=== PATIENT | male | born 1985 | race Caucasian/White ===

== ENCOUNTER 2019-05-03 15:01 | Emergency (ER) | payer OTHER, MEDICAID, SELFPAY ==
[2019-05-03 15:12] VITALS: BP 126/83; PULSE 92; RESP 20; TEMP 36.6; O2SAT 99; BMI 32.1
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
--- NOTE | 2019-05-07 12:13 | PC.NURSE ---
Pt called stating he did not get abx prescription filled, lost script and would like me to call it in. [phone] Encouraged pt to follow up as needed and indicated and return for any needs or concerns.
== END 2019-05-03 16:28 | disposition home or self-care (01) ==
PROVIDERS: Emergency Provider Emergency Medicine
DX: S20.212A Contusion of left front wall of thorax, initial encounter (principal); V49.40XA Driver injured in collision with unspecified motor vehicles in traffic accident, initial encounter
CPT/HCPCS: 71046; 71100; 72170; 73610; 99282; 99284

== ENCOUNTER 2020-02-14 23:25 | Emergency (ER) | payer OTHER, MEDICAID, SELFPAY ==
[2020-02-14 23:42] VITALS: BP 146/88; PULSE 104; RESP 16; TEMP 36.7; O2SAT 98; BMI 33.3
--- NOTE | 2020-02-15 00:26 | ED_ITS ---
HPI - Extremity Problem General Chief complaint: Extremity Problem,Nontraumatic Stated complaint: states right leg cellulitis Time Seen by Provider: 02/15/20 00:03 Source: patient Mode of arrival: Ambulatory Limitations: no limitations History of Present Illness HPI Narrative: 35-year-old gentleman with chronic low back pain on a pain contract and on 10 mg of oxycodone b.i.d. presents with approximately 2 weeks o f increasing right lower extremity redness and tenderness. Approximately 4 days into noticing that the leg was hurting more he took a total of 4 doses of Keflex and noticed significant improvement. Within a week symptoms had returned and he now has increasing pain swelling and redness in the right lower extremity. Has some minor chronic lower extremity edema but no other significant risk factors for recurrent cellulitis Related Data Previous Rx's Medication Instructions Recorded sulfamethoxazole-trimethoprim 1 tab PO BID #14 tab 05/03/19 [Bactrim DS] sulfamethoxazole-trimethoprim 1 tab PO BID #20 tab 02/15/20 Allergies Allergy/AdvReac Type Severity Reaction Status Date / Time No Known Drug Allergies Allergy Verified 05/03/19 15:18 Review of Systems Review of Systems Narrative: Pertinent positive and negative findings as per HPI Remainder of review of systems is otherwise unremarkable for Constitutional: Fevers, chills, weakness ENT: No sore throat, neck pain, ear pain CV: Chest pain, palpitations, dyspnea on exertion Respiratory: Cough, wheeze, dyspnea GI: Nausea, vomiting, diarrhea, change in bowel habits, black or bloody stools : Dysuria, hematuria, flank pain MS: Muscle weakness, numbness, joint swelling or warmth Neuro: Syncope, dizziness, tingling Patient History Medical History Chronic back pain (Acute) Pain management contract agreement (Acute) Social History Smoking Status: Former smoker Smoking Status: Former smoker alcohol intake frequency: holidays/special occasions only Substance Use Type: does not use Exam Narrative Exam Narrative: General: Alert appropriate in no acute distress Respiratory: Able to speak in full sentences, no obvious respiratory distress Skin: No obvious rashes, warm and dry Neurologic: Grossly intact no obvious asymmetries or abnormalities Psych, appropriate insight and affect, cooperative Extremities: 1+ lower extremity edema on the left with early venous stasis changes developing. 2+ on the right with erythema from the ankle to approximately 8 cm proximal. No obvious source or site of skin breakdown, calf is nontender and does not suggest DVT Initial Vital Signs Initial Vital Signs: Vital Signs Temperature 98.1 F 02/14/20 23:42 Pulse Rate 104 H 02/14/20 23:42 Respiratory Rate 16 02/14/20 23:42 Blood Pressure 146/88 H 02/14/20 23:42 Pulse Oximetry 98 02/14/20 23:42 Course Orders Ordered: Discontinued Medications Trimethoprim/Sulfamethoxazole (Bactrim Ds) 1 tab PO NOW ONE Stop: 02/15/20 00:37 Last Admin: 02/15/20 00:57 Dose: 1 tab Documented by: TERESA Vital Signs Vital signs: Vital Signs - 8 hr 02/14/20 23:42 02/15/20 00:45 Temperature 98.1 F Pulse Rate 104 H 101 H Respiratory Rate 16 18 Blood Pressure 146/88 H Blood Pressure [Left Arm] 146/88 H Pulse Oximetry 98 100 MDM - Extremity (Nontraumatic) MDM Narrative Medical decision making narrative: 35-year-old gentleman with right lower extremity cellulitis partially treated with antibiotics borrowed from a friend. Will complete a week of Septra to fully treated. No signs of sepsis no signs of DVT. Prescription is written encouraged follow-up with his primary care physician. We discussed pain medication, he currently is on 10 mg of oxycodone b.i.d. through his primary care physician for chronic back pain and uses Aleve at least twice a day. Discussed possibility of adding Tylenol into that daily pain cocktail should he desire any additional pain relief. Safe for home discharge Discharge Plan Departure Patient Disposition: Home Clinical Impression: Cellulitis Qualifiers: Site of cellulitis: extremity Site of cellulitis of extremity: lower extremity Laterality: right Qualified Code(s): L03.115 - Cellulitis of right lower limb Discharge Date/Time: 02/15/20 01:04 Instructions: DI for Cellulitis -- Adult Activity Restrictions/Additional Instructions: Thank you for coming in today You definitely do have a cellulitis developing in the right lower leg. I suspect that the moderate amount of edema that you have is part of the reason that you developed the cellulitis. You partially treated it with a single day of antibiotics but you really do need to complete an entire course to make sure it does not recur. I have given you 10 days of Septra/Bactrim. Please complete all 10 days If your developing fevers, chills, myalgias, a the cellulitis is worsening or you have new or different symptoms please feel free to return to the emergency department Good luck with your move and your new blended family Prescriptions: New sulfamethoxazole-trimethoprim 800-160 mg tablet 1 tab PO BID Qty: 20 RF: 0 No Action sulfamethoxazole-trimethoprim [Bactrim DS] 800-160 mg tablet 1 tab PO BID Qty: 14 RF: 0
[2020-02-15 00:45] VITALS: BP 146/88; PULSE 101; RESP 18; O2SAT 100
[2020-02-15] MEDS: TRIMETH/SULFA 160/800 (DS) TABLET 1 TAB PO (00:57)
== END 2020-02-15 01:04 | disposition home or self-care (01) ==
PROVIDERS: Emergency Provider Emergency Medicine
DX: L03.115 Cellulitis of right lower limb (principal)
CPT/HCPCS: 99283

== ENCOUNTER 2020-03-02 21:55 | Emergency (ER) | payer OTHER, MEDICAID, SELFPAY ==
--- NOTE | 2020-03-02 22:03 | ED.EXTPRO ---
HPI - Extremity Problem General Chief complaint: Skin/Abscess/Foreign Body Stated complaint: cellulitis right leg getting worse Time Seen by Provider: 03/02/20 21:58 Source: patient Mode of arrival: Ambulatory Limitations: no limitations History of Present Illness HPI Narrative: 35M smoker presents with a chief complaint of a recurrence of cellulitis of his lower legs. He denies fever, chills, N/V. He was recently seen and treated for cellulitis and started feeling better so he stopped taking his antibiotics. Soon thereafter the redness, warmth, and pain returned. He is otherwise well and free of complaint MD Complaint: extremity pain and extremity swelling Onset (ago): day(s) Pain Consistency: constant Location: left and right Quality: burning and aching Radiation: none Relieving factors: movement Related Data Previous Rx's Medication Instructions Recorded sulfamethoxazole-trimethoprim 1 tab PO BID #14 tab 05/03/19 [Bactrim DS] sulfamethoxazole-trimethoprim 1 tab PO BID #20 tab 02/15/20 doxycycline hyclate 100 mg PO BID #20 tab 03/02/20 Allergies Allergy/AdvReac Type Severity Reaction Status Date / Time No Known Drug Allergies Allergy Verified 03/02/20 22:16 Review of Systems Constitutional Constitutional: Denies chills, Denies fatigue, Denies fever(s), Denies frequent falls, Denies lethargy and Denies weakness Eyes Eyes: Denies change in vision, Denies eye discharge, Denies irritation and Denies loss of vision ENT Ears, Nose, Mouth, and Throat: Denies change in voice, Denies dizziness, Denies neck pain, Denies sore throat and Denies throat swelling Cardiovascular Cardiovascular: Denies chest pain, Denies irregular heart rhythm, Denies lightheadedness, Denies palpitations, Denies dyspnea, Denies dyspnea on exertion and Denies orthopnea Respiratory Respiratory: Denies cough, Denies dyspnea, Denies dyspnea on exertion and Denies wheezing Gastrointestinal Gastrointestinal: Denies abdominal pain, Denies change in bowel habits, Denies diarrhea, Denies nausea and Denies vomiting Musculoskeletal Musculoskeletal: Denies neck pain and Denies numbness Integumentary/Breasts Skin/Breast: Denies pruritus, Reports erythema, Denies rash, Reports skin pain, Reports skin swelling and Denies wounds Neurologic Neurologic: Denies behavioral changes, Denies confusion, Denies dizziness, Denies frequent falls, Denies loss of vision, Denies numbness and Denies weakness Psychiatric Psychiatric: Denies anxiety, Denies behavioral changes, Denies confusion, Denies depression, Denies homicidal ideation and Denies suicidal ideation Endocrine Endocrine: Denies fatigue, Denies flushing and Denies palpitations Hematologic/Lymphatic Hematologic/Lymphatic: Denies easy bruising Allergic/Immunologic Allergic/Immunologic: Denies urticaria, Denies throat swelling and Denies wheezing Patient History Medical History Chronic back pain (Acute) Pain management contract agreement (Acute) Social History Smoking Status: Former smoker Smoking Status: Former smoker alcohol intake frequency: holidays/special occasions only Substance Use Type: does not use Exam Narrative Exam Narrative: GEN: AOx3 and in mild distress EYES: Pupils are equal, round, and reactive to light and accommodation. Extraoccular muscles are intact bilaterally. There is no subconjunctival hemorrhage or exudate. CHEST: Lungs are clear to auscultation bilaterally and free of wheezes, rales, or rhonchi. Heart rate is regular rhythm, there are no murmurs, clicks, rubs, or gallops. There is no chest wall tenderness. ABD: Abdomen is soft and nontender. There is no guarding or rebound. Bowel sounds are normal in all 4 quadrants. There is no mass or organomegaly. EXT: Full painless ROM of all extremities with no loss of sensation or strength. SKIN: B/L LE erythema and warmth of lower portion of legs. No fluctuance, induration, or drainage. Initial Vital Signs Initial Vital Signs: Vital Signs Temperature 99.3 F 03/02/20 22:08 Pulse Rate 105 H 03/02/20 22:08 Respiratory Rate 18 03/02/20 22:08 Blood Pressure 136/75 03/02/20 22:08 Pulse Oximetry 96 03/02/20 22:08 Course Orders Ordered: Discontinued Medications Doxycycline Hyclate (Vibramycin) 100 mg PO NOW ONE Stop: 03/02/20 22:05 Last Admin: 03/02/20 22:13 Dose: 100 mg Documented by: RICHA MDM - Extremity (Nontraumatic) MDM Narrative Medical decision making narrative: cellulitis returns after stopping ABX. Patient without systemic findings, no signs of sepsis. Return precautions given. Questions answered to his apparent satisfaction. Discharge Plan Departure Patient Disposition: Home Clinical Impression: Cellulitis Qualifiers: Site of cellulitis: extremity Site of cellulitis of extremity: lower extremity Laterality: unspecified laterality Qualified Code(s): L03.119 - Cellulitis of unspecified part of limb Discharge Date/Time: 03/02/20 22:40 Activity Restrictions/Additional Instructions: *You have been diagnosed with [ Bilateral lower extremity cellulitis ] *What to do: *Take medications as directed *Follow up with your primary care provider in 2-3 days, call for an appointment. Let them know you were seen in the Emergency Department and that we ask that you be seen in follow up *Return to ER if you should have any new, worsening or concerning symptoms Prescriptions: New doxycycline hyclate 100 mg tablet 100 mg PO BID Qty: 20 RF: 0 No Action sulfamethoxazole-trimethoprim [Bactrim DS] 800-160 mg tablet 1 tab PO BID Qty: 14 RF: 0 sulfamethoxazole-trimethoprim 800-160 mg tablet 1 tab PO BID Qty: 20 RF: 0
[2020-03-02 22:08] VITALS: BP 136/75; PULSE 105; RESP 18; TEMP 37.4; O2SAT 96; BMI 34.7
[2020-03-02] MEDS: DOXYCYCLINE HYCLATE 100 MG TABLET PO (22:13)
== END 2020-03-02 22:40 | disposition home or self-care (01) ==
PROVIDERS: Emergency Provider Emergency Medicine
DX: L03.116 Cellulitis of left lower limb (principal); L03.115 Cellulitis of right lower limb
CPT/HCPCS: 99282; 99283

== ENCOUNTER 2022-05-16 13:46 | Emergency (ER) | payer OTHER, MEDICAID, SELFPAY ==
[2022-05-16 14:15] VITALS: BP 170/83; PULSE 99; RESP 16; TEMP 36.9; O2SAT 97; BMI 36.3
== END 2022-05-16 17:53 | disposition left against medical advice (07) ==
PROVIDERS: Emergency Provider Emergency Medicine
CPT/HCPCS: 99281

== ENCOUNTER 2022-06-16 22:51 | Emergency (ER) | payer OTHER, MEDICAID, SELFPAY ==
[2022-06-16 23:05] VITALS: BP 139/78; PULSE 112; RESP 20; TEMP 36.5; O2SAT 100; BMI 35.3
--- NOTE | 2022-06-16 23:15 | ED.GENADULT ---
HPI - General Adult General Chief complaint: Extremity Injury, Lower Stated complaint: right leg cellulitis/injury x1 da Time Seen by Provider: 06/16/22 23:06 Source: patient Mode of arrival: Ambulatory History of Present Illness HPI narrative: 37-year-old male who is here for evaluation of several days of worsening redness to his right lower extremity. He states that a couple days ago there was a small wound that developed on the front of his right wheatley. Redness has developed since then. He has had skin infections in the past. He states that overall he feels okay. No fevers. Has not tried anything for his read leg prior to arrival. Related Data Previous Rx's Medication Instructions Recorded sulfamethoxazole 800 1 tab PO BID #14 tabs 05/03/19 mg-trimethoprim 160 mg tablet (Bactrim DS) sulfamethoxazole 800 1 tab PO BID #20 tabs 02/15/20 mg-trimethoprim 160 mg tablet doxycycline hyclate 100 mg tablet 100 mg PO BID #20 tabs 03/02/20 doxycycline hyclate 100 mg tablet 100 mg PO BID 7 days #14 tabs 06/16/22 Allergies Allergy/AdvReac Type Severity Reaction Status Date / Time No Known Drug Allergies Allergy Verified 05/16/22 14:15 Review of Systems Constitutional Constitutional: Reports system reviewed and no additional complaints, except as documented Musculoskeletal Musculoskeletal: Reports system reviewed and no additional complaints, except as documented Integumentary/Breasts Skin/Breast: Reports system reviewed and no additional complaints, except as documented Neurologic Neurologic: Reports system reviewed and no additional complaints, except as documented Hematologic/Lymphatic On Anticoagulants: No Patient History Medical History Chronic back pain Pain management contract agreement Social History Smoking Status: Current some day smoker Smoking Status: Current some day smoker alcohol intake frequency: holidays/special occasions only Substance Use Type: marijuana Exam Initial Vital Signs Initial Vital Signs: Vital Signs Temperature 97.7 F 06/16/22 23:05 Pulse Rate 112 H 06/16/22 23:05 Respiratory Rate 20 06/16/22 23:05 Blood Pressure 139/78 06/16/22 23:05 Pulse Oximetry 100 06/16/22 23:05 Oxygen Delivery Method 06/16/22 23:05 Const General: cooperative and comfortable [facility] Head: normal to inspection and normocephalic Resp Effort & Inspection: normal respiratory effort Cardio Pulses: dorsalis pedis present on the right Skin Other: Patient has a large area of erythema that encompasses circumferentially his right lower extremity from his knee down to his ankle. There is a 1 cm x 1 cm ulceration on the anterior aspect of the right wheatley in the proximal 1/3. There is a smaller ulceration on the lateral aspect of the distal 1/3. Neuro Sensory Exam: no sensory deficits noted Extrem Other: Bilateral lower extremity swelling. Has full range of motion of his right knee and his right ankle. Course Orders Ordered: Discontinued Medications Doxycycline Hyclate (Doxycycline Hyclate 100 Mg Tablet) 100 mg PO NOW ONE Stop: 06/16/22 23:16 Last Admin: 06/16/22 23:21 Dose: 100 mg Documented By: MATTIE Vital Signs Vital signs: Vital Signs - 8 hr 06/16/22 23:05 Temperature 97.7 F Pulse Rate 112 H Respiratory Rate 20 Blood Pressure 139/78 Pulse Oximetry 100 Oxygen Delivery Method Room Air Medical Decision Making MDM Narrative Medical decision making narrative: Patient is afebrile but is tachycardic. He did admit to smoking marijuana prior to coming here to the emergency department. He has physical exam that is consistent with cellulitis of his right lower extremity. There is no findings consistent with abscess. He is nontoxic appearing. The extent of his cellulitis is borderline as to whether not he would need admitted to the hospital for IV antibiotics. He stated that he can not be admitted because he is a single parent. He would like to try outpatient antibiotics. He was given a dose of doxycycline here in the ER and a prescription was sent to the pharmacy of his choice. He was informed that he needs to keep a close eye on the redness and if it worsens that he does need to return most likely for admission for IV antibiotics. Discharge Plan Departure Patient Disposition: Home Clinical Impression: Cellulitis of lower extremity Instructions: DI for Cellulitis -- Adult Activity Restrictions/Additional Instructions: You absolutely have an infection in your right leg. Like we discussed you are on the border of potentially needing admitted to the hospital. We will attempt oral antibiotics at home. A prescription was sent to the pharmacy of your choice. You were given a 1st dose here in the ER. Please pick the antibiotic up tomorrow and start taking it as directed. Return to the emergency department for any new or worsening symptoms. Prescriptions: New doxycycline hyclate 100 mg tablet 100 mg PO BID 7 Days Qty: 14 0RF No Action sulfamethoxazole-trimethoprim [Bactrim DS] 800-160 mg tablet 1 tab PO BID Qty: 14 0RF sulfamethoxazole-trimethoprim 800-160 mg tablet 1 tab PO BID Qty: 20 0RF doxycycline hyclate 100 mg tablet 100 mg PO BID Qty: 20 0RF Visit Report Forms: Patient Portal/API
[2022-06-16] MEDS: DOXYCYCLINE HYCLATE 100 MG TABLET PO (23:21)
--- NOTE | 2022-06-16 23:22 | PC.NURSE ---
Pt refusing anything with needles. Pt declines blood work.
== END 2022-06-16 23:34 | disposition home or self-care (01) ==
PROVIDERS: Emergency Provider Emergency Medicine
DX: L03.115 Cellulitis of right lower limb (principal)
CPT/HCPCS: 99283